=== PATIENT | female | born 2000 | race Caucasian/White ===

== ENCOUNTER 2022-02-09 13:50 | Inpatient (IN) ==
[2022-02-09 14:59] LABS: ABS Lymphocytes 1.3 10^3/ul (1.0-4.8); ABS Monocytes 0.2 10^3/ul (0-0.8); ABS Neutrophils 2.3 10^3/ul (1.5-7.7); Eosinophil % 0.2 %; Hematocrit 40 % (35-47); Hemoglobin 13.4 g/dL (12.0-16.0); Lymphocyte % 33.8 %; Mean Corpuscular HGB Conc 34 g/dL (31-36); Mean Corpuscular Hemoglobin 30 pg (27-31); Mean Corpuscular Volume 89 fL (80-97); Mean Platelet Volume 9.6 fL (7.4-10.4); Nucleated Red Blood Cells % 0.3; Platelet Count 187 10^3/uL (150-450); Red Blood Count 4.47 10^6 /uL (3.70-4.87); Red Cell Distribution Width 14 % (10-15); White Blood Count 3.9 10^3/uL (3.5-10.8)
[2022-02-09 15:01] LABS: Urine Appearance Clear; Urine Bilirubin Negative (Negative); Urine Blood 1+ (Negative); Urine Color Yellow; Urine Glucose Negative (Negative); Urine Ketones Negative (Negative); Urine Nitrite Negative (Negative); Urine Protein Negative (Negative); Urine Specific Gravity 1.008 (1.002-1.030); Urine Urobilinogen Negative (Negative)
[2022-02-09 15:09] LABS: Urine Bacteria 1+ (Absent); Urine Red Blood Cell Absent (Absent); Urine White Blood Cell Trace(0-5/hpf) (Absent)
[2022-02-09 15:16] LABS: Urine Benzodiazepine Screen None Detected (None Detect); Urine Cannabinoids Screen None Detected (None Detect); Urine Opiates Screen None Detected (None Detect)
[2022-02-09 15:27] LABS: ALT 14 U/L (7-52); AST 20 U/L (13-39); Acetaminophen < 15 mcg/mL; Albumin 4.8 g/dL (3.2-5.2); Albumin/Globulin Ratio 2.1 (1-3); Alcohol, S 80 mg/dL (<13); Alkaline Phosphatase 59 U/L (35-149); Anion Gap 7 mmol/L (2-11); Blood Urea Nitrogen 8 mg/dL (6-24); CO2 Carbon Dioxide 29 mmol/L (22-32); Calcium 9.5 mg/dL (8.6-10.3); Chloride 104 mmol/L (101-111); Globulin 2.3 g/dL (2-4); Glucose 80 mg/dL (70-100); Salicylate < 2.50 mg/dL (<30); Sodium 140 mmol/L (135-145); Total Protein 7.1 g/dL (6.4-8.9); eGFR CKD-EPI 129.7 (>60)
[2022-02-09 15:41] LABS: TSH Ultra Thyroid Stim Horm 0.61 mcIU/mL (0.34-5.60)
[2022-02-09] MEDS ORDERED: Al Hydrox/Mg Hydrox/Simet LIQ 30 ML UDC PO PRN (20:42)
[2022-02-09 21:57] LABS: HCG Pregnancy < 0.60 mIU/mL
[2022-02-10 07:56] LABS: HDL Cholesterol 42.8 mg/dL
[2022-02-10] MEDS: Vitamin THERAPEUTIC TAB PO SCH (13:05)
[2022-02-11 07:50] VITALS: BP 95/54
[2022-02-11] MEDS: Vitamin THERAPEUTIC TAB PO SCH (10:18)
== END 2022-02-11 12:16 | disposition home or self-care (01) | DRG 751 ==
LOC: ED 13:50 → BSU 21:21
PROVIDERS: ADMIT Psychiatry & Neurology Psychiatry; ATTEND Psychiatry & Neurology Psychiatry